=== PATIENT | male | born 1980 | race Hispanic/Latino ===

== ENCOUNTER 2020-02-22 11:04 | Observation (INO) | payer SELFPAY ==
[2020-02-22] MEDS ORDERED: Iopamidol-370 76% 500 ML 1 ML ONE (12:22)
[2020-02-22] MEDS ORDERED: Ondansetron PF 4 MG/2 ML Vial ONE ×2 (12:43→18:11)
[2020-02-22] MEDS ORDERED: Morphine 4 MG/ML VIAL ONE ×3 (12:43→16:22)
[2020-02-22 13:34] LABS: ALT (SGPT) 31 U/L (8-55); AST (SGOT) 16 U/L (5-34); Albumin 4.3 g/dL (3.5-5.0); Alkaline Phosphatase 75 U/L (40-110); Anion Gap 11 mmol/L (10-20); BUN (Urea Nitrogen) 12 mg/dL (8.9-20.6); Bilirubin, Total 0.3 mg/dL (0.2-1.2); Calc. Creatinine Clearance 0 mL/min (70-130); Calcium 9.3 mg/dL (7.8-10.44); Carbon Dioxide 27 mmol/L (22-29); Chloride 106 mmol/L (98-107); Estimated GFR-MDRD 74; Globulin 3.2 g/dL (2.4-3.5); Glucose 98 mg/dL (70-105); Lipase 16 U/L (8-78); Potassium 3.9 mmol/L (3.5-5.1); Protein, Total 7.5 g/dL (6.0-8.3); Sodium 140 mmol/L (136-145)
--- NOTE | 2020-02-22 13:42 | CT ---
CT ABDOMEN AND PELVIS WITH IV CONTRAST: HISTORY: Diffuse upper abdominal pain. Nausea and vomiting. Epigastric pain. The patient is post appendecto my. FINDINGS: The lung bases are unremarkable. The liver, spleen, pancreas, adrenal glands, and kidneys are normal . No calcified gallstones are seen. No free air, free fluid, or lymphadenopathy is seen in the abdo men or pelvis. The aorta is normal caliber. The small bowel loops are not abnormally dilated. There is colonic diverticulosis without diverticul itis. The prostate is mildly enlarged. No osteolytic or osteoblastic lesions are seen. A small fat -containing umbilical hernia is present. A small hiatal hernia is noted. IMPRESSION: 1. No evidence of acute process. 2. Colonic diverticulosis. 3. Mild prostatic enlargement. POS: [facility]
[2020-02-22 13:44] LABS: #Basophils 0.1 thou/uL (0.0-0.2); #Eosinphils 0.1 thou/uL (0.0-0.7); #Monocytes 0.5 thou/uL (0.11-0.59); #Neutrophils 6.6 thou/uL (1.40-6.50); %Basophils 0.8 % (0.0-1.0); %Eosinophils 1.6 % (0.0-10.0); %Lymphocytes 21.8 % (21.0-51.0); %Monocytes 5.6 % (0.0-10.0); %Neutrophils 70.2 % (42.0-75.0); Hemoglobin 14.9 g/dL (14.0-18.0); Mean Corpuscular HGB CONC 32.1 g/dL (32.0-36.0); Mean Corpuscular Hemoglobin 27.5 pg (27.0-31.0); Mean Corpuscular Volume 85.6 fL (78.0-98.0); Mean Platelet Volume 7.2 fL (7.4-10.4); Platelet Count 313 thou/uL (130-400); RBC Distribution Width 12.6 % (11.5-14.5); White Blood Cell (WBC) Count 9.3 thou/uL (4.8-10.8)
[2020-02-22] MEDS ORDERED: Dicyclomine 20 MG TAB ONE (13:48)
[2020-02-22 14:27] LABS: Bilirubin Negative (Negative); Blood, Urine Negative (Negative); Clarity Clear (Clear); Glucose, Urine (Dipstick) Normal (Negative); Ketone, Urine Negative (Negative); Leukocyte Negative Leu/uL (Negative); Nitrite Negative (Negative); Protein, Urine (Dipstick) Negative (Neg-Trace); Specific Gravity, Urine 1.031 (1.002-1.036); Urobilinogen Normal mg/dL (Less than 2); pH, Urine 7.5 (5.0-9.0)
[2020-02-22] MEDS ORDERED: Pantoprazole 40 MG VIAL ONE (14:47)
--- NOTE | 2020-02-22 15:06 | RAD ---
EXAM: CHEST ONE VIEW HISTORY: Epigastric abdominal pain. Nausea and vomiting. COMPARISON: 01/14/2011 FINDINGS: Cardiac silhouette is magnified by projection but is enlarged. The pulmonary vasculature is within no rmal limits. The lungs are clear. No other interval change. IMPRESSION: 1. No acute cardiopulmonary process. 2. Mild cardiomegaly.
[2020-02-22 15:26] LABS: Troponin I Less than 0.010 ng/mL (< 0.028)
--- NOTE | 2020-02-22 15:38 | ULT ---
GALLBLADDER ULTRASOUND: Date: 02/22/2020 HISTORY: Epigastric pain, right upper quadrant pain. FINDINGS: The liver demonstrates increased echogenicity consistent with fatty infiltration with focal sparing a djacent to the gallbladder. Multiple shadowing gallstones and echogenic sludge is seen in the gallbla dder. No gallbladder wall thickening or pericholecystic fluid is seen. The common duct measures 7.0 m m in diameter. The right kidney and visualized portions of the pancreas are unremarkable. No free flu id is seen in Morison's pouch. The strawhat inspector and packer reports a positive Mcmillan's sign. IMPRESSION: 1. Fatty liver. 2. Cholelithiasis. 3. If there is concern for acute cholecystitis, further evaluation with HIDA scan would be helpful. POS: OFF
[2020-02-22] MEDS ORDERED: hydrALAZINE 20 MG/ML VIAL SLOW IVP PRN (17:00)
[2020-02-22] MEDS ORDERED: Ondansetron PF 4 MG/2 ML Vial IVP PRN (17:00)
[2020-02-22] MEDS ORDERED: Morphine 2 MG/ML VIAL SLOW IVP PRN (17:00)
[2020-02-22] MEDS ORDERED: Ondansetron ODT 4 MG TAB PO PRN (17:00)
[2020-02-22] MEDS ORDERED: Ketorolac Tromethamine 30 MG/ML VIAL ONE (18:28)
[2020-02-22] MEDS ORDERED: Fentanyl 100 MCG/2 ML VIAL ONE (18:28)
[2020-02-22] MEDS ORDERED: Acetaminophen 500 MG TAB ONE (18:28)
[2020-02-22] MEDS ORDERED: Fentanyl 100 MCG/2 ML VIAL SLOW IVP PRN (18:34)
[2020-02-22] MEDS ORDERED: Ketorolac Tromethamine 30 MG/ML VIAL IVP SCH (18:45)
[2020-02-22] MEDS: Sodium Chloride 0.9% 1,000 ML IV SCH (20:00)
[2020-02-22] MEDS: Famotidine 20 MG TAB PO SCH (20:00)
[2020-02-22] MEDS: Enoxaparin Sodium 40 MG/0.4 ML SYRINGE SC SCH (20:01)
[2020-02-22 21:22] VITALS: BMI 31.9
[2020-02-22] MEDS: Ketorolac Tromethamine 30 MG/ML VIAL IVP SCH (23:39)
--- NOTE | 2020-02-22 23:42 | HP ---
HISTORY OF PRESENT ILLNESS: Sebastian Mullins, 39-year-old male patient, automobile mechanic helper, presents to the emergency room for his first episode of epigastric right upper quadrant pain. He is in severe pain. CAT scan of the abdomen and pelvis was unremarkable. Abdominal ultrasound reveals a 7 mm bile duct. Positive sonographic Mcmillan sign. Multiple gallstones and fatty liver. Patient has undergone COVID testing. His white count is 9 and hemoglobin 14. Comprehensive metabolic profile normal. ALLERGIES: REPORTED ASPIRIN, BUT HE STATES THIS WAS AN ALLERGY FROM A CHILDHOOD REPORTED BY HIS MOTHER. HE DOES NOT KNOW THE REACTION. WE HAVE CALLED HIS MOTHER. HIS MOTHER SAYS THAT HE CAN TAKE ASPIRIN, DOES NOT KNOW WHY THIS IS LISTED AN ALLERGY. THIS SHOULD BE TAKEN OFF AN ALLERGY. TOBACCO: None. ALCOHOL: None. MEDICATIONS: None routinely. PAST SURGICAL HISTORY: Noncontributory. PAST MEDICAL HISTORY: Noncontributory. REVIEW OF SYSTEMS: Ten-point noncontributory. PHYSICAL EXAMINATION: VITAL SIGNS: 130/78 and heart rate 84. HEAD, EARS, EYES, NOSE, AND THROAT: Unremarkable. Sclerae nonicteric. SKIN: Nonjaundiced. LUNGS: Clear to auscultation. CARDIAC: Regular rate and rhythm without murmur, rub, or gallop. ABDOMEN: Soft. Tenderness in right upper quadrant without guarding or rebound. Positive Mcmillan sign. EXTREMITIES: Unremarkable. ASSESSMENT AND PLAN: Acute cholecystitis. I have recommended laparoscopic video cholecystectomy. Risks of infection, bleeding, reoperation discussed. Job ID: [id number]
[2020-02-23] MEDS: Sodium Chloride 0.9% 1,000 ML IV SCH ×2 (00:51→11:01)
[2020-02-23] MEDS: Ketorolac Tromethamine 30 MG/ML VIAL IVP SCH ×2 (05:01→11:01)
[2020-02-23 06:27] LABS: ALT (SGPT) 36 U/L (8-55); AST (SGOT) 20 U/L (5-34); Albumin 3.6 g/dL (3.5-5.0); Alkaline Phosphatase 69 U/L (40-110); Bilirubin, Direct 0.2 mg/dL (0.1-0.3); Bilirubin, Total 0.4 mg/dL (0.2-1.2); Protein, Total 6.3 g/dL (6.0-8.3)
[2020-02-23 07:37] LABS: SARS-CoV-2 MS2 Positive; SARS-CoV-2 N Gene Negative; SARS-CoV-2 S Gene Negative; SARS-CoV-2 by NAA Not Detected (NotDetected); SARS-CoV-2 orf1ab Negative
[2020-02-23] MEDS: Famotidine 20 MG TAB PO SCH ×2 (07:42→20:25)
[2020-02-23] MEDS ORDERED: Rocuronium Bromide 10 MG/ML (10ML VIAL) ONE (09:08)
[2020-02-23] MEDS ORDERED: Glycopyrrolate 0.2 MG/ML 5 ML SYRINGE ONE (09:08)
[2020-02-23] MEDS ORDERED: Labetalol HCl 100 MG/20 ML VIAL ONE (09:08)
[2020-02-23] MEDS ORDERED: Metoclopramide HCl 10 MG/2 ML VIAL ONE (09:08)
[2020-02-23] MEDS ORDERED: ePHEDrine 50 MG/ML VIAL ONE (09:08)
[2020-02-23] MEDS ORDERED: PROPOFOL 200 MG/20 ML VIAL ONE (09:08)
[2020-02-23] MEDS ORDERED: Lidocaine 1% PF 5 ML VIAL ONE (09:08)
[2020-02-23] MEDS ORDERED: Bupivacaine PF 0.5% 30 ML VIAL ONE (14:43)
[2020-02-23] MEDS ORDERED: EPINEPHrine 1 MG/ML AMP ONE (14:43)
[2020-02-23] MEDS ORDERED: Lidocaine 1% w/Epinephrine 1:100K 20 ML VIAL ONE (14:46)
[2020-02-23] MEDS ORDERED: Famotidine/PF 20 mg/2ml Vial ONE (14:47)
[2020-02-23] MEDS ORDERED: Midazolam HCl 2 mg/2 ml Vial ONE (14:47)
[2020-02-23] MEDS ORDERED: SUGAMMADEX SODIUM 200 MG/2 ML VIAL ONE (14:47)
[2020-02-23] MEDS ORDERED: Fentanyl 100 MCG/2 ML VIAL ONE ×3 (14:47→16:36)
[2020-02-23] MEDS ORDERED: traMADol HCl 50 MG TAB PO PRN (15:07)
[2020-02-23] MEDS ORDERED: Acetaminophen 500 MG TAB PO PRN (15:07)
[2020-02-23] MEDS ORDERED: Promethazine HCl 25 MG/ML VIAL SLOW IVP PRN (16:02)
[2020-02-23] MEDS ORDERED: Meperidine HCl/PF 25 MG/ML VIAL SLOW IVP PRN (16:02)
[2020-02-23] MEDS ORDERED: Ondansetron HCl/PF 4 MG/2 ML Vial IVP PRN (16:02)
[2020-02-23] MEDS ORDERED: Promethazine HCl 25 MG/ML VIAL IM PRN (16:02)
[2020-02-23] MEDS: Morphine 4 MG/ML VIAL SLOW IVP PRN ×2 (17:28→18:59)
[2020-02-23] MEDS: Enoxaparin Sodium 40 MG/0.4 ML SYRINGE SC SCH (20:25)
[2020-02-23] MEDS: Ibuprofen 600 MG TAB PO PRN (20:27)
[2020-02-23] MEDS: traMADol HCl 50 MG TAB PO PRN (20:28)
[2020-02-24] MEDS: Morphine 4 MG/ML VIAL SLOW IVP PRN (00:13)
--- NOTE | 2020-02-24 02:22 | DIS ---
DATE OF ADMISSION: 02/22/2020 DATE OF DISCHARGE: 02/23/2020 DISCHARGE DIAGNOSES: Acute cholecystitis; cholelithiasis; hypertension, he takes his blood pressure medications intermittently, as needed. PROCEDURES DURING HOSPITALIZATION: CT scan of abdomen and pelvis, abdominal ultrasound, chest x-ray. Changes of acute cholecystitis and cholelithiasis. Sonographic positive Mcmillan sign, 7 mm bile duct. Normal liver function tests on admission and repeated on the morning of surgery, normal. Procedure, laparoscopic video cholecystectomy. COVID negative. HISTORY: A 39-year-old male, first episode of upper abdominal pain, presented to the emergency room. Clinical exams suspect cholecystitis. Positive sonographic Mcmillan sign. Normal liver function tests. CT scan of the abdomen and pelvis otherwise unremarkable. No biliary dilatation. Bile duct 7 mm. Patient underwent COVID testing which was negative. Underwent laparoscopic video cholecystectomy, after which he was discharged home the same day. Follow up in my office in 2 to 3 weeks. DIET: As tolerated. ACTIVITY: As tolerated. No lifting restrictions. DISCHARGE MEDICATIONS: Tylenol, Advil [id number] as needed for pain. Tramadol prescribed, if needed. FOLLOWUP: Follow up in my office in 2 to 3 weeks. Job ID: [id number]
[2020-02-24] MEDS: traMADol HCl 50 MG TAB PO PRN ×2 (06:01→12:11)
--- NOTE | 2020-02-24 07:04 | OP ---
DATE OF PROCEDURE: 02/23/2020 PREOPERATIVE DIAGNOSES: Acute on chronic cholecystitis, cholelithiasis. POSTOPERATIVE DIAGNOSES: Acute on chronic cholecystitis, cholelithiasis. PROCEDURE PERFORMED: Laparoscopic video cholecystectomy. ANESTHESIA: General, local 0.5% Marcaine 30 mL mixed with 1% Xylocaine with epinephrine 20 mL. DESCRIPTION OF PROCEDURE: The patient was taken to the operating room, where under general anesthesia, abdomen was clipped of hair, prepared with ChloraPrep and draped in routine fashion. Local anesthetic was infiltrated in the skin and subcutaneous tissue about each port site. Infraumbilical incision made, pneumoperitoneum to 15 mmHg obtained with a Veress needle, replaced with a 5 port, video laparoscope inserted. Right subxiphoid incision was made and 11 port placed, right subcostal incision made in midclavicular anterior axillary line and 5 port placed. Liver appeared to be normal. Fundus of the gallbladder was acutely inflamed, grasped and retracted cephalad, it drained clear fluid. Infundibulum was grasped and retracted laterally. Cystic artery and duct dissected free and critical view obtained. Good hemostasis noted. The cystic artery and duct divided and gallbladder dissected free from inflammatory adhesions and attachments, hepatic fossa. Gallbladder and contents removed, submitted to Pathology. Hemostasis gained with cautery. Cari placed in the liver bed. Good hemostasis assured. Irrigant and pneumoperitoneum evacuated. All instruments removed and all skin incisions were approximated with interrupted subdermal 4-0 Monocryl and [place] glue applied. The patient tolerated the procedure well. Job ID: [id number]
[2020-02-24] MEDS ORDERED: Polyethylene Glycol 3350 17 GM Packet PO SCH (09:00)
[2020-02-24] MEDS: Ibuprofen 600 MG TAB PO PRN (09:31)
[2020-02-24] MEDS: Famotidine 20 MG TAB PO SCH (09:32)
[2020-02-24 11:23] VITALS: BP 158/97; TEMP 98.6
== END 2020-02-24 15:47 | disposition home or self-care (01) ==
LOC: ERS 11:04 → INTOOBSV 16:26 → SJJU 16:26
PROVIDERS: ADMIT Specialist; ATTEND Specialist
PROC: 0FT44ZZ Resection of Gallbladder, Percutaneous Endoscopic Approach (ICD-10-PCS; principal; 2020-02-23)
DX: K80.12 Calculus of gallbladder with acute and chronic cholecystitis without obstruction (principal); I10 Essential (primary) hypertension; K76.0 Fatty (change of) liver, not elsewhere classified; K57.30 Diverticulosis of large intestine without perforation or abscess without bleeding; N40.0 Benign prostatic hyperplasia without lower urinary tract symptoms; Z20.828 Contact with and (suspected) exposure to other viral communicable diseases; Z88.6 Allergy status to analgesic agent
CPT/HCPCS: 36415; 71045; 74177; 76705; 80053; 80076; 81003; 83690; 84484; 85025; 87635; 88304; 93005; 96365; 96366; 96372; 96375; 96376; C9113; G0378; J0171; J1650; J1885; J1956; J2250; J2270; J2405; J2704; J2765; J3010; J3490; Q9967; S0020; S0028; U0003